=== PATIENT | male | born 1950 | race African-American/Black ===

== ENCOUNTER 2022-10-26 07:04 | Day surgery (SDC) | payer MEDICARE, BC ==
[~2022-10-26] VITALS: Ht 182.9 cm; Wt 111.1 kg
[~2022-10-26 07:04] MED LIST: ACYCLOVIR800 MG PO; BICALUTAMIDE50 MG PO; CYCLOBENZAPRINE1 POW; DICLOFEN POT50 MG PO; FLURBIPROFEN50 MG PO; HYDROCHLOROT25 MG PO; LISINOPRIL40 MG PO; MULTI VITAMIN1 TAB PO; OMEGA 31000 MG PO; ROSUVASTATIN CA40 MG PO; TENORMIN PO; VITAMIN C + PO
[2022-10-26 09:03] VITALS: BP 135/74
== END 2022-10-26 08:55 | disposition home or self-care (01) ==
LOC: ENDO 07:04
PROVIDERS: ATTEND Surgery
PROC: 0DJD8ZZ Inspection of Lower Intestinal Tract, Via Natural or Artificial Opening Endoscopic (ICD-10-PCS; principal; 2022-10-26)
DX: Z12.11 Encounter for screening for malignant neoplasm of colon (principal); K64.8 Other hemorrhoids; I10 Essential (primary) hypertension